=== PATIENT | male | born 1980 | race Two or more races ===

== ENCOUNTER → 2019-11-13 | Outpatient (CLI) | payer BC ==
--- NOTE | 2019-11-13 11:27 | RAD ---
Examination: TESTICULAR/SCROTUM History: Left testicular pain Comparison/Correlation: None Findings: Ultrasound examination of the testicles was performed. Right testicle measures 4 cm x 2.6 cm x 2.4 cm. Left testicle measures 2.9 cm x 2.4 cm x 2.1 cm. Normal testicular flow bilaterally is present. At the left testicle superiorly, there is a 0.3 cm x 0.4 cm x 0.24 cm heterogeneously hypoechoic structure with a slightly irregular shape. Posteriorly at this level, there is a 0.6 cm x 0.6 x 0.5 cm structure with similar appearance. There is no flow within these structures. Right testicle echotexture is normal. No abnormal flow involving the testicles were epididymides. No significant hydrocele. No varicocele. Epididymides are unremarkable. 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 Interval follow-up in 4-6 months to assess stability by ultrasound is recommended. No evidence of testicular torsion. No epididymoorchitis. Electronically signed by: Matty Wilson MD (11/13/2019 11:24 AM) [facility]
== END | disposition home or self-care (01) ==
LOC: US 10:02
PROVIDERS: ATTEND Physician Assistant
DX: N50.812 Left testicular pain (principal)
CPT/HCPCS: 76870

== ENCOUNTER → 2019-12-25 | Outpatient (CLI) | payer BC ==
[2019-12-25 11:13] LABS: BASO # 0.1 x10^3/uL (0.0-0.2); BASO % 1 % (0-3); EOS # 0.3 x10^3/uL (0.0-0.7); EOS % 3 % (0-3); HEMATOCRIT 46.4 % (39.0-53.0); HEMOGLOBIN 15.6 g/dL (13.0-17.5); LYMPH # 2.3 x10^3/uL (1.0-4.8); LYMPH % 26 % (24-48); MEAN CORPUSCULAR HEMOGLOBIN 30 pg (25-35); MEAN CORPUSCULAR HGB CONC 34 g/dL (31-37); MEAN CORPUSCULAR VOLUME 88 fL (79-100); MONO # 0.8 x10^3/uL (0.0-1.1); MONO % 9 % (0-9); NEUT # 5.1 x10^3uL (1.8-7.7); NEUT % 60 % (31-73); PLATELET COUNT 333 x10^3/uL (140-400); RED BLOOD COUNT 5.28 x10^6/uL (4.30-5.70); RED CELL DISTRIBUTION WIDTH 14.4 % (11.5-14.5); WHITE BLOOD COUNT 8.5 x10^3/uL (4.0-11.0)
[2019-12-25 11:29] LABS: ALBUMIN 4.3 g/dL (3.4-5.0); ALBUMIN/GLOBULIN RATIO 1.2 (1.0-1.7); GFR 83.2
[2019-12-26 14:59] LABS: THYROID STIM HORMONE (TSH) 2.171 uIU/mL (0.358-3.740)
== END | disposition home or self-care (01) ==
LOC: LAB 10:32
PROVIDERS: ATTEND Physician Assistant
DX: R63.1 Polydipsia (principal); R73.9 Hyperglycemia, unspecified
CPT/HCPCS: 36415; 80053; 80061; 83036; 84443; 85025

== ENCOUNTER 2020-10-09 11:43 | Emergency (ER) | payer BC, OTHER ==
[~2020-10-09] VITALS: Ht 167.6 cm; Wt 130.0 kg
[2020-10-09 12:14] VITALS: BP 196/90
--- NOTE | 2020-10-09 12:35 | PHYS DOC ---
Past History Past Medical History: No Pertinent History Past Surgical History: No Surgical History Alcohol Use: None Adult General Chief Complaint Chief Complaint: FLANK PAIN [facility] HPI Patient is a who presents with left-sided abdominal pain and left-sided testicular pain. Patient states he was at work on when he was moving 50 pound bags and felt a pull in his left testicle. Patient states night he had an increase in pain on his left testicle and left side of his abdomen. Patient states he was hurting so bad that he started vomiting and sweating. Patient states he still has pain but it has lessened. Patient reports pain is worse in his abdomen while he sitting on the left side, testicle is painful to touch. Patient denies nausea vomiting, diarrhea. Denies pain with urination or retention. Denies fever. States that he took tramadol and also ibuprofen yesterday which did relieve pain. Review of Systems Review of Systems Constitutional: Denies fever or chills [] Eyes: Denies change in visual acuity, redness, or eye pain [] HENT: Denies nasal congestion or sore throat [] Respiratory: Denies cough or shortness of breath [] Cardiovascular: No additional information not addressed in HPI [] GI: Reports left-sided abdominal pain, denies nausea, vomiting, bloody stools or diarrhea [] : Denies dysuria or hematuria, left-sided testicular pain [] Musculoskeletal: Denies back pain or joint pain [] Integument: Denies rash or skin lesions [] Neurologic: Denies headache, focal weakness or sensory changes [] Endocrine: Denies polyuria or polydipsia [] All other systems were reviewed and found to be within normal limits, except as documented in this note. Allergies Allergies Allergies Coded Allergies Type Severity Reaction Last Updated Verified No Known Drug Allergies 10/09/20 No Physical Exam Physical Exam Constitutional: Well developed, well nourished, no acute distress, non-toxic appearance. [] HENT: Normocephalic, atraumatic, bilateral external ears normal, oropharynx moist, no oral exudates, nose normal. [] Eyes: PERRLA, EOMI, conjunctiva normal, no discharge. [] Neck: Normal range of motion, no tenderness, supple, no stridor. [] Cardiovascular:Heart rate regular rhythm, no murmur [] Lungs & Thorax: Bilateral breath sounds clear to auscultation [] Abdomen: Bowel sounds normal, tenderness to left side of abdomen palpation Skin: Warm, dry, no erythema, no rash. [] Back: No tenderness, no CVA tenderness. [] Extremities: No tenderness, no cyanosis, no clubbing, ROM intact, no edema. [] Neurologic: Alert and oriented X 3, normal motor function, normal sensory function, no focal deficits noted. [] Psychologic: Affect normal, judgement normal, mood normal. [] Genital: Testicular pain on left side with touch, left testicle does appear swollen Current Patient Data Vital Signs Vital Signs Date Time Temp Pulse Resp B/P (MAP) Pulse Ox O2 Delivery O2 Flow Rate FiO2 10/09/20 12:14 118 18 196/90 (125) 97 EKG EKG [] Radiology/Procedures Radiology/Procedures []Study: CT chest, abdomen and pelvis without contrast INDICATION: Left-sided pain. COMPARISON: None. TECHNIQUE: Helical CT imaging performed of the chest, abdomen and pelvis without the use of contrast. Coronal and sagittal reformats were obtained. One or more of the following individualized dose reduction techniques were utilized for this examination: 1. Automated exposure control 2. Adjustment of the mA and/or kV according to patient size 3. Use of iterative reconstruction technique. FINDINGS: CT Chest: Normal aortic and main pulmonary artery caliber. No pericardial effusion or retrosternal hematoma. Several mildly enlarged subcarinal lymph nodes measuring just over a centimeter short axis. Mediastinal and hilar lymph nodes elsewhere measure within normal limits for size. Small distal paraesophageal lymph nodes. No localized airspace infiltrate, pleural effusion or pneumothorax. Tiny right apical nodule on image 14 series 2 measuring 3 mm. This does not warrant dedicated follow-up based on size unless otherwise clinically indicated. The visualized thyroid is unremarkable. Morphologically benign axillary lymph nodes bilaterally. Possible prior surgery along the lower margin of the left glenoid. No displaced rib fracture. Intact sternum. No evidence for acute trauma to the thoracic spine. CT Abdomen/Pelvis: No focal hepatic abnormality. Unremarkable gallbladder. Within normal limits pancreas. The spleen is unremarkable as are the adrenal glands. Within normal limits kidneys. No collecting system dilatation. Decompressed and poorly evaluated urinary bladder. The prostate is normal in size. Small focus of prostatic mineralization. Unremarkable colon and appendix. Nonobstructed small bowel. Unremarkable stomach. Prominence of the diaphragmatic crura appears to be normal anatomic finding for this patient as the adjacent structures are unremarkable. Normal aortic caliber. Scattered inguinal lymph nodes not meeting pathologic criteria based on size and morphology. Symmetric muscular bulk. No acute osseous abnormality seen throughout the pelvis or involving the lumbar spine. IMPRESSION: CT CHEST: 1. No acute abnormality seen throughout the chest. 2. Mildly prominent subcarinal lymph nodes are favored reactive unless there is any pertinent clinical history that would suggest otherwise CT ABDOMEN/PELVIS: 1. No acute abnormality seen throughout the abdomen or pelvis to account for the patient's reported left-sided abdominal pain. Electronically signed by: TASHIA HERNANDEZ MD (10/09/2020 1:16 PM) [id number] EXAMINATION: US TESTICULAR (SCROTAL ULTRASOUND) CLINICAL HISTORY: Left-sided testicular/abdominal pain TECHNIQUE: Sonography of the scrotal contents with color flow and spectral Doppler imaging of the testicular vasculature was performed. COMPARISON: None FINDINGS: RIGHT SCROTUM: - Right Testis: 3.6 x 2.2 x 1.8 cm. Homogeneous with no calcifications or mass. Normal intratesticular arterial and venous flow with normal spectral waveforms. - Right Epididymis: Within normal limits. Vascular flow on Color Doppler symmetric to the contralateral side. - Hydrocele: None. - Varicocele: Absent. LEFT SCROTUM: - Left Testis: 3.5 x 2.3 x 1.8 cm. Homogeneous with no calcifications or mass. Normal intratesticular arterial and venous flow with normal spectral waveforms. - Left Epididymis: Within normal limits. Vascular flow on Color Doppler symmetric to the contralateral side. - Hydrocele: None. - Varicocele: Absent. IMPRESSION: Unremarkable scrotal ultrasound. Electronically signed by: Alfonso Mcnamara DO (10/09/2020 1:31 PM) [id number] Heart Score Risk Factors: Risk Factors: DM, Current or recent (<one month) smoker, HTN, HLP, family history of CAD, obesity. Risk Scores: Risk Factors: DM, Current or recent (<one month) smoker, HTN, HLP, family history of CAD, obesity. Course & Med Decision Making Course & Med Decision Making Pertinent Labs and Imaging studies reviewed. (See chart for details) []Patient is a who presents with left-sided abdominal pain and left-sided testicular pain. Patient states he was at work on when he was moving 50 pound bags and felt a pull in his left testicle. Patient states night he had an increase in pain on his left testicle and left side of his abdomen. Patient states he was hurting so bad that he started vomiting and sweating. Patient states he still has pain but it has lessened. Patient reports pain is worse in his abdomen while he sitting on the left side, testicle is painful to touch. Patient denies nausea vomiting, diarrhea. Denies pain with urination or retention. Denies fever. States that he took tramadol and also ibuprofen yesterday which did relieve pain. Ultrasound ordered to rule out testicular torsion. CT abdomen pelvis ordered. UA, CBC, BMP ordered to rule out infection. CT negative for any abnormalities.Unremarkable scrotal ultrasound. UA negative for infections. Labs within normal limits. Will dischage patient home with f/u on Sunday with PCP if still having symptoms. Patient to continue taking ibuprofen at home for discomfort. Dragon Disclaimer Dragon Disclaimer This electronic medical record was generated, in whole or in part, using a voice recognition dictation system. Departure Departure: Impression: Primary Impression: Testicle tenderness Additional Impression: Abdominal pain Disposition: 01 DC HOME SELF CARE/HOMELESS Condition: STABLE Referrals: PARVEEN PRABHAKAR (PCP) Patient Instructions: Abdominal Pain (Nonspecific) Additional Instructions: You were seen in the emergency room today for testicular pain and abdominal pain. Your testicular ultrasound was negative for any abnormalities. The CT of your abdomen was also negative for any abnormalities. All of your labs and urine were all within normal limits. You may return to the emergency room with worsening symptoms or concerns. Otherwise follow-up with your primary care physician on Sunday if symptoms have continued. Continue to take ibuprofen at home for discomfort. EMERGENCY DEPARTMENT GENERAL DISCHARGE INSTRUCTIONS Thank you for coming to [facility] (ED) today and trusting us with you care. We trust that you had a positivie experience in our Emergency Department. If you wish to speak to the department management, you may call the director at [phone]. YOUR FOLLOW UP INSTRUCTIONS ARE FOLLOWS: 1. Do you have a private Doctor? If you do not have a private doctor, please ask for a resource list of physicians or clinics that may be able to assist you with follow up care. 2. The Emergency Physician has interpreted your x-rays. The X-Ray specialist will also review them. If there is a change in the findings, you will be notified in 48 hours when at all possible. 3. A lab test or culture has been done, your results will be reviewed and you will be notified if you need a change in treatment. ADDITIONAL INSTRUCTIONS AND INFORMATION: 1. Your care today has been supervised by a physician who is specially trained in emergency care. Many problems require more than one evaluation for a complete diagnosis and treatment. We recommend that you schedule your follow up appointment as recommended to ensure complete treatment of you illness or injury. If you are unable to obtain follow up care and continue to have a problem, or if your condition worsens, we recommend that you return to the ED. 2. We are not able to safely determine your condition over the phone nor are we able to give sound medical advice over the phone. For these safety reasons, if you call for medical advice we will ask you to come to the ED for further evaluation. 3. If you have any questions regarding these discharge instructions please call the ED at [phone]. SAFETY INFORMATION: In the interest of safety, wellness, and injury prevention; we encourage you to wear your sealbelt, if you smoke; quite smoking, and we encourage family to use a protective helmet for bicycling and other sporting events that present an increased risk for head injury. IF YOUR SYMPTOMS WORSEN OR NEW SYMPTOMS DEVELOP, OR YOU HAVE CONCERNS ABOUT YOUR CONDITION; OR IF YOUR CONDITION WORSENS WHILE YOU ARE WAITING FOR YOUR FOLLOW UP APPOINTMENT; EITHER CONTACT YOUR PRIMARY CARE DOCTOR, THE PHYSICIAN WHOSE NAME AND NUMBER YOU WERE GIVEN, OR RETURN TO THE ED IMMEDIATELY. Problem Qualifiers MIGUEL TRINIDAD APRN Oct 09, 2020 12:35
[2020-10-09 13:06] LABS: CALCIUM 9.2 mg/dL (8.5-10.1); GFR 83.2; POTASSIUM 4.1 mmol/L (3.5-5.1)
[2020-10-09 13:07] LABS: BASO # 0.1 x10^3/uL (0.0-0.2); BASO % 1 % (0-3); EOS # 0.4 x10^3/uL (0.0-0.7); EOS % 3 % (0-3); HEMATOCRIT 51.9 % (39.0-53.0); LYMPH # 2.7 x10^3/uL (1.0-4.8); LYMPH % 20 % (24-48); MEAN CORPUSCULAR HEMOGLOBIN 29 pg (25-35); MEAN CORPUSCULAR HGB CONC 33 g/dL (31-37); MEAN CORPUSCULAR VOLUME 89 fL (79-100); MONO # 1.5 x10^3/uL (0.0-1.1); MONO % 11 % (0-9); NEUT # 8.9 x10^3uL (1.8-7.7); NEUT % 65 % (31-73); PLATELET COUNT 353 x10^3/uL (140-400); RED CELL DISTRIBUTION WIDTH 14.8 % (11.5-14.5); WHITE BLOOD COUNT 13.6 x10^3/uL (4.0-11.0)
--- NOTE | 2020-10-09 13:18 | RAD ---
Study: CT chest, abdomen and pelvis without contrast INDICATION: Left-sided pain. COMPARISON: None. TECHNIQUE: Helical CT imaging performed of the chest, abdomen and pelvis without the use of contrast. Coronal and sagittal reformats were obtained. One or more of the following individualized dose reduction techniques were utilized for this examinat ion: 1. Automated exposure control 2. Adjustment of the mA and/or kV according to patient size 3. Use of iterative reconstruction technique. FINDINGS: CT Chest: Normal aortic and main pulmonary artery caliber. No pericardial effusion or retrosternal hematoma. Se veral mildly enlarged subcarinal lymph nodes measuring just over a centimeter short axis. Mediastinal and hilar lymph nodes elsewhere measure within normal limits for size. Small distal paraesophageal l ymph nodes. No localized airspace infiltrate, pleural effusion or pneumothorax. Tiny right apical nodule on image 14 series 2 measuring 3 mm. This does not warrant dedicated follow-up based on size unless otherwise clinically indicated. The visualized thyroid is unremarkable. Morphologically benign axillary lymph nodes bilaterally. Possible prior surgery along the lower margin of the left glenoid. No displaced rib fracture. Intact sternum. No evidence for acute trauma to the thoracic spine. CT Abdomen/Pelvis: No focal hepatic abnormality. Unremarkable gallbladder. Within normal limits pancreas. The spleen is unremarkable as are the adrenal glands. Within normal limits kidneys. No collecting system dilatation . Decompressed and poorly evaluated urinary bladder. The prostate is normal in size. Small focus of p rostatic mineralization. Unremarkable colon and appendix. Nonobstructed small bowel. Unremarkable stomach. Prominence of the d iaphragmatic crura appears to be normal anatomic finding for this patient as the adjacent structures are unremarkable. Normal aortic caliber. Scattered inguinal lymph nodes not meeting pathologic criter ia based on size and morphology. Symmetric muscular bulk. No acute osseous abnormality seen throughout the pelvis or involving the lum bar spine. IMPRESSION: CT CHEST: 1. No acute abnormality seen throughout the chest. 2. Mildly prominent subcarinal lymph nodes are favored reactive unless there is any pertinent clinica l history that would suggest otherwise CT ABDOMEN/PELVIS: 1. No acute abnormality seen throughout the abdomen or pelvis to account for the patient's reported l eft-sided abdominal pain. Electronically signed by: TASHIA HERNANDEZ MD (10/09/2020 1:16 PM) [id number]
[2020-10-09 13:21] LABS: BACTERIA,URINE 0 /HPF (0-FEW); BILIRUBIN,URINE NEG (NEG); CLARITY,URINE CLEAR; COLOR,URINE YELLOW; GLUCOSE,URINE NEG (NEG); NITRITE,URINE NEG (NEG); RBC,URINE 0 /HPF (0-2); UROBILINOGEN,URINE 0.2 mg/dL (0.2 mg/dL); WBC,URINE 0 /HPF (0-4)
--- NOTE | 2020-10-09 13:33 | RAD ---
EXAMINATION: US TESTICULAR (SCROTAL ULTRASOUND) CLINICAL HISTORY: Left-sided testicular/abdominal pain TECHNIQUE: Sonography of the scrotal contents with color flow and spectral Doppler imaging of the will ticular vasculature was performed. COMPARISON: None FINDINGS: RIGHT SCROTUM: - Right Testis: 3.6 x 2.2 x 1.8 cm. Homogeneous with no calcifications or mass. Normal intratesticula r arterial and venous flow with normal spectral waveforms. - Right Epididymis: Within normal limits. Vascular flow on Color Doppler symmetric to the contralater al side. - Hydrocele: None. - Varicocele: Absent. LEFT SCROTUM: - Left Testis: 3.5 x 2.3 x 1.8 cm. Homogeneous with no calcifications or mass. Normal intratesticular arterial and venous flow with normal spectral waveforms. - Left Epididymis: Within normal limits. Vascular flow on Color Doppler symmetric to the contralatera l side. - Hydrocele: None. - Varicocele: Absent. IMPRESSION: Unremarkable scrotal ultrasound. Electronically signed by: Alfonso Mcnamara DO (10/09/2020 1:31 PM) [id number]
[2020-10-09 14:50] LABS: % ATYL 1 % (0-0); % EOS 4 % (0-5); % LYMPHS 21 % (24-48); % MONOS 15 % (0-10); % SEGS 59 % (35-66)
[2020-10-09 14:53] LABS: PLT ESTIMATE ADEQUATE (ADEQUATE)
== END 2020-10-09 14:47 | disposition home or self-care (01) ==
LOC: ER 11:43
DX: R10.9 Unspecified abdominal pain (principal); N50.812 Left testicular pain; R11.10 Vomiting, unspecified
CPT/HCPCS: 36415; 71250; 74176; 76870; 80048; 81001; 85007; 85025; 99285

== ENCOUNTER 2020-11-05 18:20 | Emergency (ER) | payer BC, OTHER ==
[~2020-11-05] VITALS: Ht 170.2 cm; Wt 130.0 kg
[2020-11-05 18:30] VITALS: BP 155/96
[2020-11-05] MEDS ORDERED: SULF1TAB24 PO (18:41)
[2020-11-05] MEDS ORDERED: CEPH500C PO (18:41)
--- NOTE | 2020-11-05 18:41 | PHYS DOC ---
Past History Past Medical History: No Pertinent History (FRANSICO MEJIA APRN) Past Surgical History: No Surgical History (FRANSICO MEJIA APRN) Alcohol Use: None (FRANSICO MEJIA APRN) General Adult EDM: Chief Complaint: INSECT BITE HPI: HPI: Patient is a 40-year-old male who presents emergency department with complaints of a red, swollen, tender area to his right anterior shoulder for the last 2 days. Patient states that the redness started to spread to his right axilla today. He denies any injury or itching. Patient states that he thought was a spider bite. He reports having low-grade temperatures up to 99 for the last 2 days and nausea without any vomiting. Patient denies any myalgias, shortness of breath, or cough. He denies any decreased range of motion of the affected extremity, numbness, tingling, or weakness. He currently rates the pain a 3/10 on the pain scale, the pain increases if the area is touched. He denies any drainage or bleeding from the site. (FRANSICO MEJIA APRN) Review of Systems: Review of Systems: Complete ROS is negative unless otherwise noted in HPI. (FRANSICO MEJIA APRN) Allergies: Allergies: Allergies Coded Allergies Type Severity Reaction Last Updated Verified No Known Drug Allergies 10/09/20 No (FRANSICO MEJIA APRN) Physical Exam: PE: See Above Constitutional: Well developed, well nourished, no acute distress, non-toxic appearance, obese. [] HENT: Normocephalic, atraumatic, bilateral external ears normal, nose normal. [] Eyes: PERRLA, EOMI, conjunctiva normal, no discharge. [] Neck: Normal range of motion, no stridor. [] Cardiovascular:Heart rate regular rhythm Lungs & Thorax: Respirations even and unlabored, no retractions, no respiratory distress Skin: Warm, dry; area of erythema with central pustule that is nonfluctuant noted to the anterior right shoulder measuring 14 cm x 3 cm, tender and warm to palpation Extremities: RUE: No cyanosis, ROM intact Neurologic: Alert and oriented X 3, no focal deficits noted. [] Psychologic: Affect normal, judgement normal, mood normal. [] (FRANSICO MEJIA APRN) EKG: EKG: [] (FRANSICO MEJIA APRN) Radiology/Procedures: Radiology/Procedures: [] (FRANSICO MEJIA APRN) Heart Score: Risk Factors: Risk Factors: DM, Current or recent (<one month) smoker, HTN, HLP, family history of CAD, obesity. Risk Scores: Score 0 - 3: 2.5% MACE over next 6 weeks - Discharge Home Score 4 - 6: 20.3% MACE over next 6 weeks - Admit for Clinical Observation Score 7 - 10: 72.7% MACE over next 6 weeks - Early Invasive Strategies (FRANSICO MEJIA APRN) Course & Med Decision Making: Course & Med Decision Making Pertinent Labs and Imaging studies reviewed. (See chart for details) 40-year-old male who was sent to the emergency department for evaluation after being turned away urgent care for tachycardia and a low-grade temperature. Patient presented with complaints of a infected spider bite to his right anterior shoulder with redness, warmth, and tenderness that began yesterday. The patient was offered IV and labs, he declined this option and stated that he would like to try antibiotics first. Prescriptions were written for Keflex and Bactrim. The patient also declined any pain medication. He was encouraged to take Tylenol or ibuprofen as needed for pain or fever. The edges of the infected area were traced with black marker. The patient was instructed to return to the ER if the area of redness extended past the markings or if he developed a fever. Patient verbalized an understanding of home care, medications, follow-up, and return to ED instructions and was in agreement with the plan of care. [] (FRANSICO MEJIA APRN) Dragon Disclaimer: Dragon Disclaimer: This electronic medical record was generated, in whole or in part, using a voice recognition dictation system. (FRANSICO MEJIA APRN) Departure Departure: Impression: Primary Impression: Infected insect bite of right shoulder Qualified Codes: S40.261A - Insect bite (nonvenomous) of right shoulder, initial encounter; L08.9 - Local infection of the skin and subcutaneous tissue, unspecified; W57.XXXA - Bitten or stung by nonvenomous insect and other nonvenomous arthropods, initial encounter Disposition: 01 DC HOME SELF CARE/HOMELESS Condition: STABLE Referrals: PARVEEN PRABHAKAR (PCP) Patient Instructions: Cellulitis, [id number], Insect Bite, [id number] Additional Instructions: Fill the prescription(s) and use as directed. You may take tylenol or ibuprofen as needed for pain. Apply warm, moist packs to the area to help decrease discomfort. Follow up with your primary care doctor or return to the ER in 48 hours to have wound rechecked. Return to the ER sooner if your symptoms worsen or if fever develops.. Scripts Sulfamethoxazole/Trimethoprim (BACTRIM DS TABLET) 1 Each Tablet 1 TAB PO BID for infection for 7 Days, #14 TAB 0 Refills Prov: FRANSICO MEJIA APRN 11/05/20 Cephalexin (CEPHALEXIN) 500 Mg Capsule 1 CAP PO QID for infection for 7 Days, #28 CAP 0 Refills Prov: FRANSICO MEJIA APRN 11/05/20 Attending Signature Attending Signature I have participated in the care of this patient and I have reviewed and agree with all pertinent clinical information above including history, exam, and recommendations. (YESICA HSU MD) FRANSICO MEJIA APRN Nov 05, 2020 18:41 YESICA HSU MD Nov 07, 2020 01:33
== END 2020-11-05 18:46 | disposition home or self-care (01) ==
LOC: ER 18:20
DX: S40.261A Insect bite (nonvenomous) of right shoulder, initial encounter (principal); L08.9 Local infection of the skin and subcutaneous tissue, unspecified; W57.XXXA Bitten or stung by nonvenomous insect and other nonvenomous arthropods, initial encounter; Y93.89 Activity, other specified; Y92.89 Other specified places as the place of occurrence of the external cause; Y99.8 Other external cause status
CPT/HCPCS: 99283-25

== ENCOUNTER → 2021-07-13 | Outpatient (CLI) | payer BC ==
[~2021-07-13] MED LIST: CEPH500C PO; SULF1TAB24 PO
--- NOTE | 2021-07-13 17:09 | RAD ---
XR STERNUM 2+ VIEWS, XR CHEST 2V History: Reason: CHEST PAIN, BUMP ON STERNUM FOR 2 MONTHS / Spl. Instructions: / History: Technique: 2 views of the chest and 2 views of the sternum. Comparison: None. Findings: No consolidation or pleural effusion. No pneumothorax. Normal heart size. No acute sternal fracture. No pathologic osseous lesion. Moderate left glenohumeral DJD. Impression: 1. No radiographic evidence of sternal pathology. If persistent clinical concern, CT can further isela luate. 2. No acute cardiopulmonary process. Electronically signed by: Eloy Chaparro DO (07/13/2021 5:06 PM) [id number]
== END ==
LOC: RAD 15:15
PROVIDERS: ATTEND Physician Assistant
DX: M95.4 Acquired deformity of chest and rib (principal); M19.012 Primary osteoarthritis, left shoulder
CPT/HCPCS: 71046; 71120